=== PATIENT | female | born 1990 | race Native Hawaiian/Other Pacific Islander ===

== ENCOUNTER 2016-11-02 01:03 | Emergency (ER) | payer OTHER ==
[~2016-11-02] VITALS: Ht 172.7 cm; Wt 113.4 kg
[~2016-11-02 01:03] MED LIST: ACET7.5T70 PO; FLUTMIS6 INH; GABA100C2 PO; GABA300C2 PO; IPRATROPIUM/ IN; LORA10TA3 PO; MONT10TA PO; PHENOBARB OR; RANI150T78 PO; RLFLU500T PO; SYMBICORT1 AE1 INH; TIOTCAP2 INH; TIZA4TAB5 PO; ZOLP10TA2 PO
[2016-11-02 01:46] VITALS: BP 124/82; TEMP 98.9
== END 2016-11-02 01:47 | disposition home or self-care (01) ==
LOC: ED 01:03
DX: M54.2 Cervicalgia (principal); M54.9 Dorsalgia, unspecified
CPT/HCPCS: 99281

== ENCOUNTER 2020-08-31 16:34 | Outpatient (CLI) | payer OTHER | END 2020-08-31 21:38 | disposition home or self-care (01) | LOC: RAD 16:34 | PROVIDERS: ATTEND Nurse Practitioner Primary Care | DX: J44.1 Chronic obstructive pulmonary disease with (acute) exacerbation (principal) ==